=== PATIENT | female | born 1970 | race Caucasian/White ===

== ENCOUNTER 2017-07-27 23:35 | Emergency (ER) | payer OTHER ==
[~2017-07-27] VITALS: Ht 152.4 cm; Wt 140.6 kg
[~2017-07-27 23:35] MED LIST: ASA81 MG PO; AVAPRO150 MG PO; CENTRUM TABLET1 TAB PO; LIPITOR80 MG PO; PLAVIX75 MG PO
[2017-07-28] MEDS ORDERED: ZETIA10 MG (00:04)
[2017-07-28] MEDS ORDERED: ASPIR-TRIN325 MG (00:04)
[2017-07-28] MEDS ORDERED: LOPRESSOR25 MG (00:05)
[2017-07-28] MEDS ORDERED: IBRANCE 125 MG (00:06)
[2017-07-28] MEDS ORDERED: ZYNCOF 20-400120 ML PO (04:10)
[2017-07-28] MEDS ORDERED: XOPENEX0.63 MG/3 IH (04:10)
[2017-07-28] MEDS ORDERED: NASONEB NASAL1 EACH NASAL (04:10)
== END 2017-07-28 03:54 | disposition home or self-care (01) ==
LOC: ER 23:35
DX: J20.9 Acute bronchitis, unspecified (principal)

== ENCOUNTER 2018-04-11 16:30 | Outpatient (CLI) | payer OTHER ==
[~2018-04-11 16:30] MED LIST changes: +ASPIR-TRIN325 MG; +IBRANCE 125 MG; +LOPRESSOR25 MG; +NASONEB NASAL1 EACH NASAL; +XOPENEX0.63 MG/3 IH; +ZETIA10 MG; +ZYNCOF 20-400120 ML PO
== END 2018-04-11 16:37 | disposition home or self-care (01) ==
LOC: RAD 16:30
DX: J01.80 Other acute sinusitis (principal); R07.89 Other chest pain

== ENCOUNTER → 2018-06-10 | Emergency (ER) | payer OTHER | END | disposition left against medical advice (07) | LOC: ER 16:47 | DX: Z53.20 Procedure and treatment not carried out because of patient's decision for unspecified reasons (principal) ==

== ENCOUNTER 2019-01-20 14:30 | Emergency (ER) | payer OTHER ==
[~2019-01-20] VITALS: Ht 152.4 cm; Wt 142.4 kg
[2019-01-20] MEDS ORDERED: IBRANCE100 MG (14:45)
[2019-01-20] MEDS ORDERED: FEMARA2.5 MG (14:46)
== END 2019-01-20 20:18 | disposition home or self-care (01) ==
LOC: ER 14:30
DX: I87.2 Venous insufficiency (chronic) (peripheral) (principal); M79.605 Pain in left leg

== ENCOUNTER 2019-03-26 16:40 | Emergency (ER) | payer OTHER ==
[~2019-03-26] VITALS: Ht 152.4 cm; Wt 140.6 kg
[~2019-03-26 16:40] MED LIST changes: +FEMARA2.5 MG; +IBRANCE100 MG
== END 2019-03-26 18:11 | disposition home or self-care (01) ==
LOC: ER 16:40
DX: S60.476A Other superficial bite of right little finger, initial encounter (principal); W54.0XXA Bitten by dog, initial encounter; Y93.89 Activity, other specified; Y92.89 Other specified places as the place of occurrence of the external cause; Y99.8 Other external cause status

== ENCOUNTER → 2021-01-06 15:00 | Outpatient (CLI) | payer OTHER | END | disposition home or self-care (01) | LOC: PPH VACUNA 15:00 | DX: Z23 Encounter for immunization (principal) ==

== ENCOUNTER 2021-08-19 13:04 | Emergency (ER) | payer OTHER ==
[~2021-08-19] VITALS: Ht 152.4 cm; Wt 158.8 kg
[2021-08-19] MEDS ORDERED: CHILDREN'S ASPI81 MG PO (13:19)
== END 2021-08-19 20:56 | disposition home or self-care (01) ==
LOC: ER 13:04
DX: R10.84 Generalized abdominal pain (principal); K43.9 Ventral hernia without obstruction or gangrene; K42.9 Umbilical hernia without obstruction or gangrene